=== PATIENT | male | born 1975 | race Two or more races ===

== ENCOUNTER 2023-01-20 23:33 | Emergency (ER) | payer MEDICAID ==
[~2023-01-20] VITALS: Ht 180.3 cm; Wt 90.0 kg
[2023-01-20 23:46] VITALS: TEMP 99.3
[2023-01-20 23:50] VITALS: BP 136/74; PULSE 80; RESP 18
[2023-01-20] MEDS ORDERED: ACET-3385 PO (23:58)
[2023-01-20] MEDS ORDERED: BACI28.410 TP (23:58)
[2023-01-20] MEDS ORDERED: DOXY-354 PO (23:58)
[2023-01-21] MEDS ORDERED: ACETAMINOPHEN 500 MG TABLET PO ONE
[2023-01-21] MEDS ORDERED: BACITRACIN 0.9 GM PACKET OINTMENT TP ONE
[2023-01-21] MEDS ORDERED: DOXYCYCLINE HYCLATE 100 MG TABLET PO ONE
== END 2023-01-21 00:30 | disposition home or self-care (01) ==
LOC: EMS 23:34
DX: S91.109A Unspecified open wound of unspecified toe(s) without damage to nail, initial encounter (principal); F12.90 Cannabis use, unspecified, uncomplicated; I10 Essential (primary) hypertension; X58.XXXA Exposure to other specified factors, initial encounter; Y93.89 Activity, other specified; Y92.89 Other specified places as the place of occurrence of the external cause; Y99.8 Other external cause status
CPT/HCPCS: 99283

== ENCOUNTER 2023-01-25 20:11 | Emergency (ER) | payer MEDICAID ==
[~2023-01-25] VITALS: Ht 180.3 cm; Wt 90.9 kg
[~2023-01-25 20:11] MED LIST: ACET-3385 PO; BACI28.410 TP; DOXY-354 PO
[2023-01-25 20:14] VITALS: BP 139/91; PULSE 88; RESP 21; TEMP 98.1
[2023-01-26] MEDS ORDERED: CEPH-558 PO (09:04)
== END 2023-01-25 20:43 | disposition left against medical advice (07) ==
LOC: EMS 20:12
DX: F22 Delusional disorders (principal); R44.0 Auditory hallucinations; R44.1 Visual hallucinations; Z53.21 Procedure and treatment not carried out due to patient leaving prior to being seen by health care provider
CPT/HCPCS: 99281; Z7502

== ENCOUNTER 2023-01-26 08:35 | Emergency (ER) | payer MEDICAID ==
[~2023-01-26] VITALS: Ht 180.3 cm; Wt 86.4 kg
[2023-01-26 08:43] VITALS: TEMP 98.3
[2023-01-26 08:54] LABS: BASOPHILS % (AUTO) 1.1 % (0.0-2.0); EOSINOPHILS % (AUTO) 0.5 % (1.0-6.0); HEMOGLOBIN 13.5 g/dL (13.5-17.5); LYMPHOCYTES # (AUTO) 1.2 K/uL (1.0-4.8); LYMPHOCYTES % (AUTO) 26.3 % (22.0-44.0); MEAN CORPUSCULAR HEMOGLOBIN 29.2 pg (26.0-34.0); MEAN CORPUSCULAR HGB CONC 33.8 G/dL (31.0-37.0); MEAN CORPUSCULAR VOLUME 87 fL (80-100); MONOCYTES # (AUTO) 0.3 K/uL (0.1-1.0); MONOCYTES % (AUTO) 6.1 % (2.0-9.0); PLATELET COUNT (AUTO) 238 K/uL (150-450); RED BLOOD CELL COUNT(AUTO) 4.62 MIL/uL (4.50-5.90); RED CELL DISTRIBUTION WIDTH 12.5 % (11.5-14.5); WHITE BLOOD COUNT (AUTO) 4.6 K/uL (4.5-11.0)
[2023-01-26] MEDS ORDERED: CEPH-558 PO (09:04)
[2023-01-26 09:06] LABS: ANION GAP 4 mmol/L (8-16); CALCIUM, TOTAL 8.7 mg/dL (8.8-10.5); CARBON DIOXIDE 31 mmol/L (22-29); CHLORIDE 105 mmol/L (98-107); CREATININE 0.98 mg/dL (0.60-1.30); GLOMERULAR FILTR. RATE CALC > 60 mL/min (>60); GLUCOSE,RANDOM 92 mg/dL (70-110); POTASSIUM 4.2 mmol/L (3.5-5.1); SODIUM SERUM 140 mmol/L (136-145); UREA NITROGEN, BLOOD 19 mg/dL (7-18)
[2023-01-26 09:11] LABS: ALANINE AMINOTRANSFERASE 40 U/L (12-78); ALBUMIN 3.4 g/dL (3.4-5.0); ALCOHOL, BLOOD (SERUM) < 3 mg/dL (0-10); ALKALINE PHOSPHATASE 84 U/L (46-116); ASPARTATE AMINOTRANSFERASE 49 U/L (15-37); BILIRUBIN,TOTAL 0.7 mg/dL (0.1-1.0); TOTAL PROTEIN, SERUM 7.4 g/dL (6.4-8.2)
[2023-01-26 09:29] LABS: COVID AG,FIA SOURCE NASAL SWAB
[2023-01-26] MEDS ORDERED: LORazepam 1 MG TABLET PO ONE (09:30)
[2023-01-26] MEDS ORDERED: OLANZapine 5 MG TABLET PO ONE (09:30)
[2023-01-26 09:51] LABS: SARS-COV2 (COVID) ANTIGEN,FIA Negative (Negative)
[2023-01-26 10:00] VITALS: BP 129/81; PULSE 73; RESP 16
== END 2023-01-26 10:15 ==
LOC: EMS 08:37
DX: F15.10 Other stimulant abuse, uncomplicated (principal); R44.0 Auditory hallucinations; F17.210 Nicotine dependence, cigarettes, uncomplicated; F12.90 Cannabis use, unspecified, uncomplicated; Z59.00 Homelessness unspecified; Z20.822 Contact with and (suspected) exposure to COVID-19
CPT/HCPCS: 99285; 87426; 80053; 85025; G0480